=== PATIENT | female | born 1995 | race Caucasian/White ===

== ENCOUNTER 2016-11-24 12:42 | Outpatient (CLI) | payer BC, MEDICAID ==
[~2016-11-24] VITALS: Ht 152.4 cm; Wt 98.1 kg
--- NOTE | 2016-11-24 13:16 | RADRPT ---
PROCEDURE: US OB biophysical profile. CLINICAL INDICATION: evaluation TECHNIQUE: Multiple sonographic images of the pelvis were obtained. The images were reviewed on a PACS workstation. COMPARISON: No prior studies are available for comparison. FINDINGS: There is a single viable intrauterine gestation. Cardiac activity is present with 176 beats per min komal. There is a vertex presentation. The placenta is anterior. There is no evidence of placental abruption. There is a mildly low amount of amniotic fluid with an PITA = 7.7 cm. Biophysical profile: movement 2/2 tone 2/2. breathing 2/2 PITA 2/2 Total 04/03 RPTAT: AA . IMPRESSION: Normal biophysical profile. Mildly low PITA of 7.7 cm. Physician Stefan Date Time Electronically viewed and signed by Physician Stfean on 11/24/2016 13:16 /
[2016-11-24 13:18] VITALS: BP 135/89; PULSE 91; RESP 18; Ht 152.4 cm; Wt 98.1 kg
[2016-11-24] MEDS ORDERED: PRENAT PO (14:11)
[2016-11-24 14:13] LABS: ADD SCAN DIFF NO
[2016-11-24 14:16] LABS: BASOPHILS % 0.3 % (0.0-2.0); EOSINOPHILS % 0.2 % (0.0-7.0); HEMATOCRIT 35.7 % (37.0-47.0); HEMOGLOBIN 12.1 g/dl (12.0-16.0); LYMPHOCYTES % 21.7 % (18.0-55.0); MEAN CORPUSCULAR HEMOGLOBIN 28.2 pg (29.0-33.0); MEAN CORPUSCULAR HGB CONC 33.9 g/dl (32.0-37.0); MEAN CORPUSCULAR VOLUME 83.2 fl (72.0-104.0); MEAN PLATELET VOLUME 12.5 fl (7.4-10.4); MONOCYTE # 0.5 10^3/ul (0.3-0.9); MONOCYTES % 5.8 % (0.0-13.0); NEUTROPHIL # 6.6 10^3/ul (1.6-7.5); NEUTROPHILS % 71.7 % (30.0-74.0); PLATELET COUNT 211 10^3/UL (140-415); RED BLOOD COUNT 4.29 10^6/ul (4.20-5.40); RED CELL DISTRIBUTION WIDTH 14.7 % (11.5-14.5); WHITE BLOOD COUNT 9.2 10^3/ul (4.8-10.8)
[2016-11-24 14:17] LABS: ADD UMIC NO; URINE BILIRUBIN (Dip) NEGATIVE (NEGATIVE); URINE BLOOD (Dip) NEGATIVE (NEGATIVE); URINE COLOR LT. YELLOW (YELLOW); URINE GLUCOSE (Dip) NEGATIVE (NEGATIVE); URINE KETONES (Dip) NEGATIVE (NEGATIVE); URINE LEUKOCYTE ESTERASE (Dip) NEGATIVE (NEGATIVE); URINE NITRITE (Dip) NEGATIVE (NEGATIVE); URINE TOTAL PROTEIN (Dip) NEGATIVE (NEGATIVE); URINE UROBILINOGEN (Dip) 0.2 E.U./dL (0.1-1.0)
[2016-11-24 14:25] LABS: ALBUMIN 3.4 g/dl (3.3-4.9)
[2016-11-24 14:26] LABS: INR 0.89; POTASSIUM 3.7 mmol/L (3.5-5.1); PT RATIO 0.9
[2016-11-24 14:27] LABS: PARTIAL THROMBOPLASTIN TIME 25.5 Sec (25.0-35.0)
[2016-11-24 14:28] LABS: BILIRUBIN,INDIRECT 0.1 mg/dl (0-1.1); BILIRUBIN,TOTAL 0.1 mg/dl (0.2-1.3); CREATININE 0.6 mg/dl (0.44-1.00); TOTAL PROTEIN 6.8 g/dl (6.1-8.1)
[2016-11-24 14:29] LABS: CALCIUM 8.9 mg/dl (8.4-10.2)
[2016-11-24 14:41] LABS: URIC ACID 5.4 mg/dl (3.1-7.9)
--- NOTE | 2016-11-24 14:49 | TRIAGE ---
OB Triage Datetime Report Generated by CPN: 11/24/2016 14:48 Datetime: 11/24/2016 14:30 Labor Evaluation Frequency: OCCAS Monitor Mode: External Duration (sec)2399: 50-70 Quality: Mild Pattern: Normal: <= 5 Contractions in 10 Minutes Resting Tone [place]: Relaxed Heart Rate FHR Baseline Rate: 150 Monitor Mode: External US Variability: Moderate 6-25 bpm Accelerations: 15X15 Decelerations: None Category: Category I Datetime: 11/24/2016 13:29 Labor Evaluation Frequency: none Monitor Mode: External Pattern: Normal: <= 5 Contractions in 10 Minutes Resting Tone [place]: Relaxed Heart Rate FHR Baseline Rate: 155 Monitor Mode: External US FHR Baseline Changes: No Baseline Change Variability: Moderate 6-25 bpm Accelerations: 15X15 Decelerations: None Category: Category I Datetime: 11/24/2016 13:22 Assessment Type: Transfer/Discharge Maternal Assessment Level of Consciousness: Fully Conscious DTR's/Clonus: DTRs 2+; No Clonus Headache: Denies Blurred Vision: No Respiratory Effort: Unlabored; Regular Rhythm; Equal Expansion Breath Sounds, Left: Clear and Equal Breath Sounds, Right: Clear and Equal Nausea/Vomiting: Denies RUQ Epigastric Pain: Denies Lower Extremities Edema: Bilateral Lower Extremities Degree: 1+ Upper Extremities Edema: None Facial Edema: None Fall Risk Assessment History of Falling: (0) No Secondary Diagnosis: (0) No Ambulatory Aid: (0) Bedrest/Nurse Assist IV Therapy: (0) No Gait: (0) Normal/Bedrest/Immobile Mental Status: (0) Oriented to Own Ability Fall Score: 0 Fall Risk Score Definition: No Risk: No action required Datetime: 11/24/2016 12:50 Time of Arrival: 11/24/2016 12:41 EGA: 37.0 Arrived By: Ambulatory Arrived From: Office Chief Complaint: LOW PITA Movement: Present Contractions: Denies/Absent Rupture of Membranes: Denies Vaginal Bleeding: None Vaginal Discharge: Denies Recent Sexual Intercouse: Denies Abdominal Trauma: Not Applicable Patient Complaints: None Time Provider Notified: 11/24/2016 13:27 Provider Notified: JIGAR Initial Plan: PITA/BPP
--- NOTE | 2016-11-24 15:21 | PN ---
Date/Time of Note Date/Time of Note DATE: 11/24/16 TIME: 15:12 OB Subjective Subjective Subjective 20 y.o primigravida was sent for bpp and nst for oligoamnios at 37weeks OB Objective Objective Objective EFM reactive PITA 7.7 + pretibial edema BP 130' TO 80-90 OB Assessment/Plan Other Assessment: IUP 37W with oligohydramnios borderline r/o mild PIH urine protein neg LFT nl platelet 211 Other plan: increase fluid intake RTH for PITA in 3days ANAIS KIMBALL MD Nov 24, 2016 15:20
== END 2016-11-24 14:45 | disposition home or self-care (01) ==
LOC: OBT 12:42 → L-D 12:43 → OBT 14:45
PROVIDERS: ATTEND Obstetrics & Gynecology
DX: O41.03X0 Oligohydramnios, third trimester, not applicable or unspecified (principal); Z3A.37 37 weeks gestation of pregnancy
CPT/HCPCS: 76818; 80053; 81003; 84560; 85025; 85610; 85730; G0463

== ENCOUNTER 2016-11-27 11:23 | Inpatient (IN) | payer BC ==
[~2016-11-27] VITALS: Ht 152.4 cm; Wt 97.7 kg
[~2016-11-27 11:23] MED LIST: PRENAT PO
--- NOTE | 2016-11-27 12:35 | RADRPT ---
PROCEDURE: OB ultrasound for biophysical profile CLINICAL INDICATION: Low PITA TECHNIQUE: Multiple sonographic images of the pelvis were obtained. Transabdominal views of the g ravid uterus are available for review. The images were reviewed on a PACS workstation. COMPARISON: None FINDINGS: breathing movement = 2/2 tone = 2/2 motion = 2/2 PITA = 2/2 PITA = 8.3cm Single live intrauterine with cardiac activity of 159 bpm. position is cephal ic. The placenta is anterior. IMPRESSION: 1. Single live intrauterine gestation. 2. Biophysical profile = 8/8. 3. PITA = 8.3 cm. RPTAT: HH .Sugar Ramos MD, MD Date Time Electronically viewed and signed by .Sugar Ramos MD, on 11/27/2016 12:35 .G/
[2016-11-27] MEDS ORDERED: METHYLERGONOVINE 0.2 MG INJ IM PRN (13:30)
[2016-11-27] MEDS ORDERED: MISOPROSTOL 200 MCG TAB PR PRN (13:30)
[2016-11-27] MEDS ORDERED: OXYTOCIN 30 UNITS/LR 500 ML IV SCH (13:30)
[2016-11-27] MEDS ORDERED: CARBOPROST 250 MCG INJ IM PRN (13:30)
[2016-11-27] MEDS ORDERED: LACTATED RINGER'S 1,000 ML IV PRN (13:30)
[2016-11-27] MEDS ORDERED: LIDOCAINE 1% (MPF) 30 ML INJ INJ PRN (13:30)
[2016-11-27] MEDS ORDERED: BUTORPHANOL 2 MG INJ IV PRN ×2 (13:30)
[2016-11-27] MEDS ORDERED: OXYTOCIN 30 UNITS/LR 500 ML IV PRN (13:30)
--- NOTE | 2016-11-27 13:47 | TRIAGE ---
OB Triage Datetime Report Generated by CPN: 11/27/2016 13:46 Datetime: 11/27/2016 13:00 Stage of : OB Triage Datetime: 11/27/2016 12:40 Stage of : OB Triage Maternal Assessment Level of Consciousness: Fully Conscious DTR's/Clonus: DTRs 1+ Headache: Denies Nausea/Vomiting: Denies RUQ Epigastric Pain: Denies Labor Evaluation Frequency: NONE Monitor Mode: External Resting Tone [place]: Relaxed Heart Rate FHR Baseline Rate: 145 Monitor Mode: External US Variability: Moderate 6-25 bpm Accelerations: 15X15 Decelerations: None Vaginal Exam Membrane Status: Intact Datetime: 11/27/2016 11:41 Maternal Assessment Level of Consciousness: Fully Conscious DTR's/Clonus: DTRs 1+ Headache: Denies Blurred Vision: No Nausea/Vomiting: Denies RUQ Epigastric Pain: Denies Facial Edema: None Labor Evaluation Frequency: NONE Monitor Mode: External Resting Tone [place]: Relaxed Heart Rate FHR Baseline Rate: 145 Monitor Mode: External US Variability: Moderate 6-25 bpm Accelerations: 15X15 Decelerations: None Category: Category I Vaginal Exam Membrane Status: Intact Datetime: 11/27/2016 11:28 Assessment Type: Triage Maternal Assessment Level of Consciousness: Fully Conscious DTR's/Clonus: DTRs 2+; No Clonus Headache: Denies Blurred Vision: No Respiratory Effort: Unlabored; Regular Rhythm; Equal Expansion Breath Sounds, Left: Clear and Equal Breath Sounds, Right: Clear and Equal Nausea/Vomiting: Denies RUQ Epigastric Pain: Denies Lower Extremities Edema: None Degree: None Upper Extremities Edema: None Degree: None Facial Edema: None Fall Risk Assessment History of Falling: (0) No Secondary Diagnosis: (0) No Ambulatory Aid: (0) Bedrest/Nurse Assist IV Therapy: (0) No Gait: (0) Normal/Bedrest/Immobile Mental Status: (0) Oriented to Own Ability Fall Score: 0 Fall Risk Score Definition: No Risk: No action required Datetime: 11/27/2016 11:21 Stage of : OB Triage Time of Arrival: 11/27/2016 11:21 EGA: 37.3 Arrived By: Ambulatory Arrived From: Home Chief Complaint: NST AND BPP FOR LOW FLUID Movement: Present Contractions: Denies/Absent Rupture of Membranes: Denies Vaginal Discharge: Denies Recent Sexual Intercouse: Denies Abdominal Trauma: Not Applicable Additional Patient Complaints: NONE Time Provider Notified: 11/27/2016 13:10 Provider Notified: DR KIMBALL Initial Plan: NST AND BPP Datetime: 11/24/2016 13:22 Fall Score: 0 Fall Risk Score Definition: No Risk: No action required Datetime: 11/24/2016 12:50 EGA: 37.0
[2016-11-27] MEDS ORDERED: MAGNESIUM SULFATE 4 GM/100 ML 100 ML IV ONE (16:00)
[2016-11-27 16:24] LABS: ADD SCAN DIFF NO
[2016-11-27 16:27] LABS: BASOPHILS % 0.2 % (0.0-2.0); EOSINOPHILS % 0.1 % (0.0-7.0); HEMOGLOBIN 12.1 g/dl (12.0-16.0); LYMPHOCYTES # 1.9 10^3/ul (0.8-2.9); LYMPHOCYTES % 17.7 % (18.0-55.0); MEAN CORPUSCULAR HEMOGLOBIN 26.7 pg (29.0-33.0); MEAN CORPUSCULAR HGB CONC 31.8 g/dl (32.0-37.0); MEAN CORPUSCULAR VOLUME 83.9 fl (72.0-104.0); MEAN PLATELET VOLUME 12.6 fl (7.4-10.4); MONOCYTE # 0.5 10^3/ul (0.3-0.9); MONOCYTES % 4.7 % (0.0-13.0); NEUTROPHIL # 8.3 10^3/ul (1.6-7.5); NEUTROPHILS % 76.7 % (30.0-74.0); PLATELET COUNT 202 10^3/UL (140-415); RED BLOOD COUNT 4.53 10^6/ul (4.20-5.40); RED CELL DISTRIBUTION WIDTH 15.2 % (11.5-14.5); WHITE BLOOD COUNT 10.8 10^3/ul (4.8-10.8)
[2016-11-27 16:28] LABS: ADD UMIC NO; URINE BILIRUBIN (Dip) NEGATIVE (NEGATIVE); URINE BLOOD (Dip) NEGATIVE (NEGATIVE); URINE COLOR LT. YELLOW (YELLOW); URINE GLUCOSE (Dip) NEGATIVE (NEGATIVE); URINE KETONES (Dip) 3+ (NEGATIVE); URINE LEUKOCYTE ESTERASE (Dip) NEGATIVE (NEGATIVE); URINE NITRITE (Dip) NEGATIVE (NEGATIVE); URINE TOTAL PROTEIN (Dip) NEGATIVE (NEGATIVE); URINE UROBILINOGEN (Dip) 0.2 E.U./dL (0.1-1.0)
[2016-11-27 16:39] LABS: ALBUMIN 3.4 g/dl (3.3-4.9)
[2016-11-27 16:40] LABS: POTASSIUM 3.9 mmol/L (3.5-5.1)
[2016-11-27 16:41] LABS: INR 0.95; PROTIME 12.7 Sec (12.2-14.2)
[2016-11-27 16:42] LABS: CREATININE 0.61 mg/dl (0.44-1.00)
[2016-11-27 16:43] LABS: BILIRUBIN,INDIRECT 0.1 mg/dl (0-1.1); BILIRUBIN,TOTAL 0.1 mg/dl (0.2-1.3); CALCIUM 9.4 mg/dl (8.4-10.2); PHOSPHORUS 4.7 mg/dl (2.5-4.9); TOTAL PROTEIN 6.8 g/dl (6.1-8.1)
[2016-11-27 17:14] LABS: ALBUMIN 3.4 g/dl (3.3-4.9); POTASSIUM 4.1 mmol/L (3.5-5.1)
[2016-11-27 17:16] LABS: CREATININE 0.59 mg/dl (0.44-1.00)
[2016-11-27 17:17] LABS: ALBUMIN/GLOBULIN RATIO 1.03; BILIRUBIN,INDIRECT 0.1 mg/dl (0-1.1); BILIRUBIN,TOTAL 0.1 mg/dl (0.2-1.3); TOTAL PROTEIN 6.7 g/dl (6.1-8.1)
[2016-11-27] MEDS: MAGNESIUM SULFATE 20 GM/500 ML 500 ML IV SCH (17:17)
[2016-11-27 17:18] LABS: CALCIUM 9.3 mg/dl (8.4-10.2); URIC ACID 5.5 mg/dl (3.1-7.9)
[2016-11-27 17:23] VITALS: Ht 152.4 cm; Wt 97.7 kg
[2016-11-27] MEDS: LACTATED RINGER'S 1,000 ML IV SCH ×2 (19:22→21:18)
[2016-11-27] MEDS ORDERED: DINOPROSTONE 10 MG VAG SUPP VAG ONE (19:30)
[2016-11-27] MEDS: ACETAMINOPHEN 500 MG TAB PO PRN (20:10)
[2016-11-28] MEDS: OXYTOCIN 30 UNITS/LR 500 ML IV PRN (00:11)
[2016-11-28] MEDS: LACTATED RINGER'S 1,000 ML IV SCH ×2 (00:53→15:10)
[2016-11-28] MEDS: MAGNESIUM SULFATE 20 GM/500 ML 500 ML IV SCH ×3 (02:59→23:03)
[2016-11-28] MEDS ORDERED: LACTATED RINGER'S 1,000 ML IV ONE (08:53)
[2016-11-28] MEDS ORDERED: NALOXONE (0.4 MG/ML) INJ IV PRN (09:00)
[2016-11-28] MEDS ORDERED: PROCHLORPERAZINE 10 MG INJ IV PRN (09:00)
[2016-11-28] MEDS ORDERED: ONDANSETRON 4 MG INJ IV PRN (09:00)
[2016-11-28] MEDS ORDERED: DIPHENHYDRAMINE 50 MG INJ IV PRN (09:00)
[2016-11-28] MEDS ORDERED: morphine 2 MG INJ IV PRN ×2 (09:00)
[2016-11-28] MEDS ORDERED: KETOROLAC 30 MG INJ IV PRN (09:00)
[2016-11-28] MEDS ORDERED: CITRIC ACID/NA CITRATE 30 ML CUP PO ONE (09:00)
[2016-11-28] MEDS ORDERED: ONDANSETRON 4 MG INJ IV ONE (09:00)
[2016-11-28] MEDS ORDERED: ONDANSETRON 4 MG INJ ONE (09:01)
[2016-11-28] MEDS ORDERED: CITRIC ACID/NA CITRATE 30 ML CUP ONE (09:01)
[2016-11-28 11:14] VITALS: BP 141/88; PULSE 101; RESP 19
[2016-11-28] MEDS: FENTAnyl 2MCG/ML-ROPIV 0.2% 100 ML BAG EPI SCH ×3 (11:19→23:09)
[2016-11-28] MEDS ORDERED: AMPICILLIN 2 GM/NS (PMX) 100 ML IVPB ONE (22:00)
[2016-11-29] VITALS (12 sets, daily range): BP systolic 127–145; BP diastolic 68–92
[2016-11-29] MEDS: AMPICILLIN 1 GM/NS (PMX) 50 ML IVPB SCH ×2 (01:58→05:50)
[2016-11-29] MEDS: LACTATED RINGER'S 1,000 ML IV SCH ×2 (05:42→18:59)
[2016-11-29] MEDS: OXYTOCIN 30 UNITS/LR 500 ML IV PRN (05:53)
[2016-11-29] MEDS: FENTAnyl 2MCG/ML-ROPIV 0.2% 100 ML BAG EPI SCH (05:55)
[2016-11-29] MEDS ORDERED: MINERAL OIL LIGHT 10 ML VIAL TOP ONE (07:30)
[2016-11-29] MEDS: OXYTOCIN 30 UNITS/LR 500 ML IV SCH ×2 (08:35→12:29)
[2016-11-29] MEDS: MAGNESIUM SULFATE 20 GM/500 ML 500 ML IV SCH ×2 (08:41→18:07)
[2016-11-29] MEDS: ACETAMINOPHEN 500 MG TAB PO PRN (08:42)
--- NOTE | 2016-11-29 10:28 | HP ---
Date/Time of Note Date/Time of Note DATE: 11/29/16 TIME: 10:13 OB - History Hx of Present Free Text/Dictation 20 y.o at 37.4 w here for f/u for sincere which was borderline on admission sincere was 8.3 and found to have increase bp admitted for induction of labor. placed on magnesium sulfate Chief Complaint: borderline sincere and high bp or induction of labor Estimated Due Date: Dec 15, 2016 : 1 Para: 0 Spontaneous : 0 Therapeutic : 0 Care: Good Care Obstetrical Complications: None Medical Complications: None Past Family/Social History * Past Medical, Surgical, Family and Obstetric Histories reviewed from chart. Blood Type: O+ Rubella: immune RPR/VDRL: Negative GBS Status: Negative HBsAG: Negative OB Admission Exam Vital Signs Vital Signs Vital Signs Date Time Temp Pulse Resp B/P Pulse Ox O2 Delivery O2 Flow Rate FiO2 11/28/16 11:14 98.2 101 19 141/88 Room Air Physical Exam HEENT: WNL Heart: Rhythm Normal Lungs: Clear, Equal Abdomen: WNL Extremities: Normal Reflexes: Normal Cervical Dilatation: None Effacement: 0% Station: -2 Membranes: Intact Amniotic Fluid: Unevaluable Accelerations: Accelerations Present Decelerations: No Decelerations Varibility: Moderate Contractions on Admission: >10 Minutes Apart Intensity: Mild Last 72 hours Lab Results CBC & BMP 11/27/16 15:35 Liver Function Test 11/27/16 15:35 Alanine Aminotransferase (ALT/SGPT) 22 Albumin 3.4 Alkaline Phosphatase 177 H Aspartate Amino Transf (AST/SGOT) 18 Direct Bilirubin 0.00 Total Protein 6.8 Magnesium Level Test 11/28/16 00:30 11/28/16 06:06 11/28/16 12:23 11/28/16 19:10 Magnesium Level 5.1 *H 5.3 *H 5.5 *H 5.6 *H Test 11/29/16 00:30 11/29/16 06:20 Magnesium Level 5.7 *H 5.5 *H OB Assessment/Plan Reason for admission: induction of labor Other Assessment: IUP 37.4W BORDERLINE OLIGOAMNIOS PIH Plan: Induction Induction Method: per Misoprostol Protocol ANAIS KIMBALL MD Nov 29, 2016 10:24
--- NOTE | 2016-11-29 10:35 | LDN ---
Date/Time of Note Date/Time of Note DATE: 11/29/16 TIME: 10:29 Delivery Summary NORMAL VAGINAL DELIVERY Weeks of Gestation 37W5D Placenta Delivered: Spontaneously Meconium: none Episiotomy: No Perineal laceration: 1 Sponge & Needle done & correct: Yes All needle counts correct: Yes Any foreign bodies felt in the: No Problems: Infant Delivery Information Sex Infant Sex: male Apgars 1 Minute: 8 5 Minute: 9 Suctioning Nose & mouth suctioned at jed: Yes Umbilical Cord Umbilical cord with: 3 Vessels Cord presentations: no nuchal cord Cord Blood was obtained: Yes Mother & Baby Disposition Disposition Mom & Baby to Maternity; Good: Yes Mom transferred to: Other Baby to NICU: Yes () ANAIS KIMBALL MD Nov 29, 2016 10:34
[2016-11-29] MEDS ORDERED: ZOLPIDEM 5 MG TAB PO PRN (11:00)
[2016-11-29] MEDS ORDERED: OXYCODONE/ASPIRIN (4.88/325) TAB PO PRN ×2 (11:00)
[2016-11-29] MEDS ORDERED: BENZOCAINE 20% 56 ML SPRAY TOP PRN (11:00)
[2016-11-29] MEDS ORDERED: OXYTOCIN 30 UNITS/LR 500 ML IV PRN (11:00)
[2016-11-29] MEDS ORDERED: METHYLERGONOVINE 0.2 MG INJ IM PRN (11:00)
[2016-11-29] MEDS ORDERED: MISOPROSTOL 200 MCG TAB PR PRN (11:00)
[2016-11-29] MEDS ORDERED: CARBOPROST 250 MCG INJ IM PRN (11:00)
[2016-11-29] MEDS ORDERED: LANOLIN 7 GM TUBE TOP PRN (11:00)
[2016-11-29] MEDS ORDERED: WITCH HAZEL/GLYCERIN PAD PR PRN (11:00)
[2016-11-29] MEDS: IBUPROFEN 600 MG TAB PO SCH ×3 (11:43→23:52)
[2016-11-29] MEDS: SENNA/DOCUSATE NA (8.6MG/50MG) TAB PO SCH (21:32)
[2016-11-30] VITALS (12 sets, daily range): BP systolic 118–141; BP diastolic 65–90
[2016-11-30] MEDS: MAGNESIUM SULFATE 20 GM/500 ML 500 ML IV SCH (04:01)
[2016-11-30] MEDS: IBUPROFEN 600 MG TAB PO SCH ×4 (05:38→23:32)
[2016-11-30] MEDS: SENNA/DOCUSATE NA (8.6MG/50MG) TAB PO SCH ×2 (09:03→22:08)
[2016-11-30 10:11] LABS: ADD SCAN DIFF NO
[2016-11-30 10:14] LABS: BASOPHILS % 0.1 % (0.0-2.0); EOSINOPHILS % 0.3 % (0.0-7.0); HEMATOCRIT 35.4 % (37.0-47.0); HEMOGLOBIN 11.3 g/dl (12.0-16.0); LYMPHOCYTES # 1.6 10^3/ul (0.8-2.9); LYMPHOCYTES % 12.9 % (18.0-55.0); MEAN CORPUSCULAR HEMOGLOBIN 27.4 pg (29.0-33.0); MEAN CORPUSCULAR HGB CONC 31.9 g/dl (32.0-37.0); MEAN CORPUSCULAR VOLUME 85.9 fl (72.0-104.0); MEAN PLATELET VOLUME 11.8 fl (7.4-10.4); MONOCYTE # 0.4 10^3/ul (0.3-0.9); MONOCYTES % 3.7 % (0.0-13.0); NEUTROPHIL # 9.9 10^3/ul (1.6-7.5); NEUTROPHILS % 82.5 % (30.0-74.0); PLATELET COUNT 188 10^3/UL (140-415); RED BLOOD COUNT 4.12 10^6/ul (4.20-5.40); RED CELL DISTRIBUTION WIDTH 15.8 % (11.5-14.5)
--- NOTE | 2016-11-30 16:32 | PN ---
Date/Time of Note Date/Time of Note DATE: 11/30/16 TIME: 16:29 OB Subjective Subjective Subjective eating ok ambulating ok OB Objective Objective Objective vss afebrile normotensive fundus firm lochia min calf neg HEENT: WNL Heart: Rhythm Normal Lungs: Clear, Equal Abdomen: WNL Extremities: Normal Reflexes: Normal OB Assessment/Plan Other Assessment: stable post vaginal delivery Other plan: discharge home in am ANAIS KIMBALL MD Nov 30, 2016 16:32
[2016-12-01 03:53] VITALS: BP 133/88
--- NOTE | 2016-12-01 04:24 | DS ---
DATE OF ADMISSION: 11/27/2016 DATE OF DISCHARGE: 12/01/2016 PRIMARY DIAGNOSIS: A 20-year-old 1, para 0, intrauterine at 34 weeks' gestational age, labor. PROCEDURE: Normal spontaneous vaginal delivery. CONDITION ON DISCHARGE: Stable. ACTIVITY: None per vagina, no lifting x6 weeks. DIET: Regular. MEDICATIONS ON DISCHARGE: 1. Motrin. 2. Iron. 3. Colace. DISCHARGE SUMMARY: Ms. Tomeka Gross is a 20-year-old 1, para 1, status post normal spont aneous vaginal delivery on 11/29/2016. She had a viable male, Apgars 8 and 9 respectively at 1 and 5 minutes. She had an uneventful day 1. She was discharged on day 2. She is ambulating , tolerating diet, positive flatulence, positive bowel movement. She will follow up in the office i n 2 weeks for care. Dictated By: EVON MAYO/CANDICE Conf#: [id number] DID#: [id number]
[2016-12-01] MEDS: IBUPROFEN 600 MG TAB PO SCH ×2 (05:32→12:40)
[2016-12-01 09:00] VITALS: BP 143/71
[2016-12-01] MEDS ORDERED: DIPHTH/TET/ACEL PERTUSS (ADULT) 0.5 ML VIAL IM* ONE (09:00)
[2016-12-01] MEDS: SENNA/DOCUSATE NA (8.6MG/50MG) TAB PO SCH (09:00)
--- NOTE | 2016-12-01 09:16 | PD.PPDC ---
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
--- NOTE | 2016-12-01 09:18 | DS ---
Date/Time of Note Date/Time of Note DATE: 12/01/16 TIME: 09:16 Obstetrical Discharge Record Final Diagnosis Final Diagnosis: Term delivered Vaginal Delivery Obstetrical Delivery: Spontaneous, Laceration, Repaired Complications Preg induced Hypertension, Other Induction: Yes Condition on Discharge Physical Assessment Last Vitals: vss afebrile Voiding: Yes Bowel Movement: Yes Fundus: Firm Calf Tenderness: No Patient Condition: Stable ANAIS KIMBALL MD Dec 01, 2016 09:18
== END 2016-12-01 16:01 | disposition home or self-care (01) | DRG 775 ==
LOC: OBT 11:23 → L-D 11:24 → OBT 13:00 → L-D 13:00 → PP1 11-29 11:04
PROVIDERS: ADMIT Obstetrics & Gynecology; ATTEND Obstetrics & Gynecology
PROC: 10E0XZZ Delivery of Products of Conception, External Approach (ICD-10-PCS; principal; 2016-11-29)
DX: O60.14X0 Preterm labor third trimester with preterm delivery third trimester, not applicable or unspecified (principal); O13.3 Gestational [pregnancy-induced] hypertension without significant proteinuria, third trimester; Z37.0 Single live birth; Z3A.37 37 weeks gestation of pregnancy
CPT/HCPCS: 62319; 76818; 80053; 80069; 80076; 81003; 83615; 83735; 84560; 85025; 85384; 85610; 85730; 86592; 86900; 86901; 87340; 90715; 99464; G0463; J0290; J2405; J2590; J3010; J3475; J7120

== ENCOUNTER 2018-08-21 22:36 | Emergency (ER) | END 2018-08-21 22:49 | disposition left against medical advice (07) ==